=== PATIENT | female | born 1935 | race Caucasian/White ===

== ENCOUNTER 2023-12-20 10:53 | Inpatient (IN) ==
--- OUTSIDE RECORDS SUMMARY | 2023-12-20 11:13 | External Medical Summary ---
Author Name Unknown Address Unknown Organization K01:LABORATORY [facility] [place] - [facility] [place] [facility] [address] Laboratory Report Ordering Provider Test Date Status REZA FERRARA 07/16/2023 12:52:01 Final Observation Date Value Abnormality Reference (Units ) Status WBC, Total 07/16/2023 12:52:01 9.00 4.00-10.80 (K/uL) Final RBC 07/16/2023 12:52:01 4.75 3.85-5.15 (M/uL) Final Hemoglobin 07/16/2023 12:52:01 15.1 12.0-15.3 (g/dL) Final HCT 07/16/2023 12:52:01 45.8 Above high normal 36.0-45.2 (%) Final MCV 07/16/2023 12:52:01 96.4 81.5-97.5 (fL) Final MCH 07/16/2023 12:52:01 31.8 27.0-34.0 (pg) Final MCHC 07/16/2023 12:52:01 33.0 32.0-36.0 (g/dL) Final RDW 07/16/2023 12:52:01 12.7 11.5-15.5 (%) Final Platelets 07/16/2023 12:52:01 264 140-400 (K/uL) Final MPV 07/16/2023 12:52:01 10.7 6.6-11.1 (fL) Final Nucleated erythrocytes/100 leukocytes [Ratio] in Blood by Automated count 07/16/2023 12:52:01 0 <=0 (/100 WBCs) Final Performing Location LABORATORY [facility] [place] - [address] [place] [address]
--- OUTSIDE RECORDS SUMMARY | 2023-12-20 11:13 | External Medical Summary | Summary of Care ---
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 Name Role Phone Casie Slaughter MD Primary Care Provider [phone] Reason for Visit * Reason Comments NEW PATIENT R Hip Pain Encounter Details Date Type Department Care Team (Latest Contact Info) Description 08/21/2023 11:00 AM EDT Office Visit Orthopaedics [address] [phone] Gwyn Martinez MD [address] [place] [address] Primary osteoarthritis of right hip* Allergies Active Allergy Reactions Criticality Noted Date Comments Amlodipine-Atorvastatin 08/21/2023 Atorvastatin 08/21/2023 Lisinopril 02/17/2004 cough documented as of this encounter (statuses as of 08/21/2023) Medications Medication Sig Dispensed Refills Start Date End Date Status LEVOTHYROXINE SODIUM 125 MCG OR TABSIndications:Other specified acquired hypothyroidism 1 TABLET DAILY 30 3 10/03/2005 Active LOVASTATIN 10 MG PO TABSIndications:Dyslip idemia, goal LDL below 160 one tab by mouth daily at hs 30 5 10/17/2005 Active Additional Information Patient not taking.Reported on 08/21/2023 TYLENOL ARTHRITIS PAIN 650 MG PO TBCR 1/2 -1 pill prn 0 07/31/2006 Activ e PLAVIX 75 MG PO TABS one a day Acti ve ASPIRIN 81 MG PO TBEC 1 TABLET DAILY Active ADVAIR DISKUS 250-50 MCG/DOSE IN MISC bid Active COMBIVENT 103-18 MCG/ACT IN AERO 2 puffs qid Active TOPROL XL 25 MG PO TB24 one at night Active COZAAR 100 MG PO TABS one a day Act hardeep Metoprolol Tartrate 25 MG Oral Tablet (Lopressor) Take 1 Tablet by mouth in the morning and 1 Tablet before bedtime. Active amLODIPine Besylate 5 MG Oral Tablet (Norvasc) Take 1 Tablet by mouth in the morning. Active Atorvastatin Calcium 10 MG Oral Tablet (Lipitor) Take 1 Tablet by mouth in the morning. Active Hospital, Clinic, or Other Facility Administered Medication Ordered Dose Route Frequency Start Date End Date Status lidocaine 1 % inj 100 mgIndications:Primary osteoarthritis of right hip 100 mg IX ONCE 08/21/2023 08/21/19 24 Ended Triamcinolone Acetonide (Kenalog) 40 MG/ML inj 40 mgIndications:Primary osteoarthritis of right hip 40 mg IX ONCE 08/21/2023 08/21/19 24 Ended documented as of this encounter (statuses as of 08/21/2023) Active Problems Problem Noted Date Diagnosed Date ADVANCE DIRECTIVE INFORMATION 07/31/2006 Overview: Yes, Patient instructed to provide copy of advance directive for provider to review and to be scanned into Electronic Medical Record Hypertensive kidney disease, benign, stage 5 or ESRD 10/02/2005 Hypopotassemia 08/07/2005 Carotid stenosis, non-symptomatic 08/07/2005 PURE HYPERCHOLESTEROLEM 05/08/2005 LOC PRIM OSTEOART-SHLDER 05/08/2005 Other allergic rhinitis 03/05/2004 Overview: ICD-10 update of inactive term CERVICAL DISC DEGEN 07/05/2002 Carpal tunnel syndrome 05/06/2002 BENIGN PARXYSMAL VERTIGO 10/20/2000 Esophageal reflux 10/20/2000 BENIGN HYPERTENSION PLANTAR FIBROMATOSIS ACQUIRED HYPOTHYROID NEC Asthma with severity to be determined Overview: ICD-10 update of inactive term Diaphragmatic hernia Other chest pain Uterine leiomyoma GENERAL OSTEOARTHROSIS Tension headache LUMB-LUMBOSAC DISC DEGEN Sciatica COLLES' FRACTURE-CLOSED Carotid Stenosis, non-symptomatic documented as of this encounter (statuses as of 08/21/2023) Immunizations Name Administration Dates Next Due Influenza, Whole Virus 02/11/2000 1 Pneumococcal Polysaccharide PPV23 (Pneumovax) 04/25/2020 Season Influenza, Quad, PF, Adjuvanted, 65+ Yrs, IM (FLUAD) 04/25/2020 Seasonal Influenza, Split, I IV3, With Preserve, Inj 01/02/2005,03/20/2004,01/04/2003,11/0 08/2001,02/16/2001 TD - Tetanus/Diptheria (ADULT) 12/20/2004 documented as of this encounter Social History Tobacco Use Types Packs/Day Years Used Date Smoking Tobacco: Never Alcohol Use Standard Drinks/Week Comments No 0 (1 standard drink = 0.6 oz pur e alcohol) Sex and Gender Information Value Date Recorded Sex Assigned at Not on file Gender Identity Not on file Sexual Orientation Not on file Job Start Date Occupation Industry Not on file Not on file Not on file documented as of this encounter Progress Notes * Gwyn Martinez MD - 08/21/2023 11:12 AM EDT Dorys Corrales [id number] Dorys Corrales is a 88 year old female who presents for consultation for righthip injury/pain to [facility]. Consult requested by Casie Slaughter MD. Dorys Corrales is here unaccompanied Quality: reviewed and agree with Nursing Notes for HPI elements History: History - NEW Pt R Hip Xray 07/24/23 Pt's daughter works as a PAR at [employer] Pt c/o 06/24 pain today Pt does NOT wish to have sx ROS: ROS per HPI otherwise non-contributory Past Medical History: Diagnosis Date Asthma, severity to be determined Benign paroxysmal vertigo Carotid Stenosis, non-symptomatic Closed Colles' fracture 05/16/93 right arm Degeneration of lumbosacral intervertebral disc Diaphragmatic hernia Esophageal reflux Generalized osteoarthritis Hearing loss, sensorineural 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 HTN, goal below 140/90 Other chest pain negative stress test 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 Sciatica ,, RLE Tension headache Uterine leiomyoma Family History Problem Relation Name Age of Onset Other (AAA) Other no family hx of AAA Social History Socioeconomic History Marital status: Spouse name: Not on file Number of children: Not on file Years of education: Not on file Highest education level: Not on file Occupational History 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 Tobacco Use Smoking status: Never Smokeless tobacco: Not on file Substance and Sexual Activity Alcohol use: No Drug use: No Sexual activity: Not Currently Other Topics Concern Not on file Social History Narrative Lives alone Social Determinants of Health Financial Resource Strain: Not on file Food Insecurity: Not on file Transportation Needs: Not on file Physical Activity: Not on file Stress: Not on file Social Connections: Not on file Intimate Partner Violence: Not on file Housing Stability: Not on file Physical Exam Constitutional: Generally well-nourished and in no acute distress Psychiatric: Mood and Affect normal Eyes: EOMI Respiratory: Normal respiratory effort with regular rate and rhythm Cardiovascular: No edema in the affected extremity (s) Hip and Pelvis Exam Gait: Limp: Positive Antalgic: Positive Palpation: tender anterior hip joint no significant tenderness at the greater trochanter or in the lumbar spine ROM: Flexion (normal 120-130): R - 90 Internal at 90 (normal 45): R - 0 External at 90 (normal 50): R - 15 All motions created pain especially flexion and internal rotation Strength: Able to do straight leg raise Radiology: 07/24/2023: Three-view x-ray right hip including AP pelvis FINDINGS No acute fracture, dislocation, or diastasis. No focal soft tissue swelling. Moderate to severe right and [id number] left hip osteoarthritis. Mild to moderate bilateral SI joint degenerative changes. IMPRESSION IMPRESSION 1. No acute RT hip osseous finding. Assessment and Plan: 1) chronic right hip pain Strongly suspect secondary to DJD which is severe Patient does not desire surgical intervention or evaluation Also discussed physical therapy which she does not desire at this time Intra-articular steroid injection performed today 08/21/2023. Patient was reporting some improvement in her pain as she walked out of the office NOTE: Pt's daughter works as a PAR at [employer], patient's daughter will let me know in 3-4 weeks how she is doing Procedure note (hip injection), right : Time out: Prior to injection, a time out was called to confirm the administration of appropriate medicine, patient name, procedure and confirm to the best of our ability and knowledge the presence of any necessary risks and benefits. Patient verbalizes understanding. Ultrasound utilized to guide injection Ultrasound required due to: need to visualize specific joint recess Sterile techinique applied. Skin sterilized with alcohol swab. Hip injected using 3.5 inch, 22 gauge needle. Injected with 2 ml lidocaine 1%, triamcinolone acetonide 40mg/ml 1 ml. Patient tolerated procedure with no significant bleeding or adverse reaction. Patient instructed to call or return to clinic for fever or warmth and redness at injection site for potential infection. Patient also advised as to potential for steroid flare reaction including increased pain and redness at injection site which should be treated with ice and resolve within 24 hours. Gwyn Martinez MD Primary Care Sports Medicine Orthopaedics [address] [phone] documented in this encounter Nursing Notes * Teodora Segura LPN - 08/21/2023 11:07 AM EDT NEW Pt R Hip Xray 07/24/23 Pt's daughter works as a PAR at [employer] Pt c/o 06/24 pain today Pt does NOT wish to have sx Laura Prieto LPN documented in this encounter Plan of Treatment Scheduled Orders Name Type Priority Associated Diagnoses Orde r Schedule POINT OF CARE US MAJOR JOINT INJECTION, ORTHO Medical Imaging Routine Primary osteoarthritis of right hip Ordered: 08/21/2023 Health Maintenance Due Date Last Done Comments Depression Screening 1947 Zoster Vaccines (1 of 2) 1986 DTaP,Tdap,and Td Vaccines (1 - Tdap) 12/21/2004 12/20/2004 Pneumococcal Vaccine: 65+ Years (2 of 2 - PCV) 04/25/2021 04/25/2020 COVID-19 Vaccine (1 - 2022- season) 2022 *SPIROMETRY ONCE FOR ASTHMA-ADULT 08/09/2023 Influenza Vaccine (FLU shot) (Season Ended) 2023 04/25/2020, 01/02/2005, 03/20/2004, Additional history exists TSH 02/12/2024 02/11/2023, 12/16, 09/15/2018, Additional history exists DXA Scan 09/13/2027 09/12/2020, 02/15, 09/03/2002 GARDASIL-HPV IMMUNIZATION SERIES Aged Out No longer eligible based on patient's age to complete this topic Hepatitis B Aged Out No longer eligi ble based on patient's age to complete this topic MENINGOCOCCAL (MENACTRA/MENVEO) Aged Out No longer eligible based on patient's age to complete this topic documented as of this encounter Medical Devices Not on filedocumented as of this encounter Visit Diagnoses Diagnosis Primary osteoarthritis of right hip- Primary Primary localized osteoarthrosis, pelvic region and thigh documented in this encounter Administered Medications Inactive Administered Medications - up to 3 most recent administrations Medication Order MAR Action Action Date Dose Rate Site lidocaine 1 % inj 100 mg 100 mg (10 mL), Intra-Articular, ONCE, On Nadira 08/21/23 at 1245, For 1 dose Given 08/21/2023 12:38 PM EDT 100 mg Hip Right Triamcinolone Acetonide (Kenalog) 40 MG/ML inj 40 mg 40 mg, Intra-Articular, ONCE, On Nadira 08/21/23 at 1245, For 1 dose Given 08/21/2023 12:38 PM EDT 40 mg Hip Right documented in this encounter Advance Directives Documents on File Type Date Recorded 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
--- OUTSIDE RECORDS SUMMARY | 2023-12-20 11:13 | External Medical Summary | Summary of Care ---
Author Name Unknown Organization [facility] Address [address] [facility] [place] [address] Phone [phone] Care Team Providers Care Experimental Assembler Name Role Phone Casie Slaughter MD Primary Care Provider [phone] Reason for Visit * Reason Comments Outpatient Testing Encounter Details Date Type Department Care Team (Late st Contact Info) Description 07/16/2023 12:50 PM EDT Laboratory Laboratory [address] [place] [phone] [facility] [address] [place] [address] Alzheimer's disease (HCC); DM type 2, not at goal ([facility]); Coronary atherosclerosis; Uremic pericarditis Allergies Active Allergy Reactions Criticality Noted Date Comments Lisinopril 02/17/2004 cough documented as of this encounter (statuses as of 07/16/2023) Medications Medication Sig Dispensed Refills Start Date End Date Status LEVOTHYROXINE SODIUM 125 MCG OR TABSIndications:Other specified acquired hypothyroidism 1 TABLET DAILY 30 3 10/03/2005 Active LOVASTATIN 10 MG PO TABSIndications:Dyslipid emia, goal LDL below 160 one tab by mouth daily at hs 30 5 10/17/2005 Active TYLENOL ARTHRITIS PAIN 650 MG PO TBCR 1/2 -1 pill prn 0 07/31/2006 Activ e PLAVIX 75 MG PO TABS one a day 0 Acti ve ASPIRIN 81 MG PO TBEC 1 TABLET DAILY 0 Active ADVAIR DISKUS 250-50 MCG/DOSE IN MISC bid 0 Active COMBIVENT 103-18 MCG/ACT IN AERO 2 puffs qid 0 Active TOPROL XL 25 MG PO TB24 one at night 0 Active COZAAR 100 MG PO TABS one a day 0 Act hardeep documented as of this encounter (statuses as of 07/16/2023) Active Problems Problem Noted Date Diagnosed Date [...] as of this encounter (statuses as of 07/16/2023) Immunizations Name Administration Dates Next Due Pneumococcal Polysaccharide PPV23 (Pneumovax) Season Influenza, Quad, PF, Adjuvanted, 65+ Yrs, IM (FLUAD) 04/25/2020 documented as of this encounter Social History [...] on file documented as of this encounter Plan of Treatment Pending Results Name Type Priority Associated Diagnoses Date /Time COMPREHENSIVE METABOLIC PANEL Lab Routine Alzheimer's disease (HCC) DM type 2, not at goal (HCC) Coronary atherosclerosis Uremic pericarditis 07/16/2023 12:52 PM EDT CBC Lab Routine Alzheimer's disease (HCC) DM type 2, not at goal (HCC) Coronary atherosclerosis Uremic pericarditis 07/16/2023 12:52 PM EDT HEMOGLOBIN A1C Lab Routine Alzheimer's disease (HCC) DM type 2, not at goal (HCC) Coronary atherosclerosis Uremic pericarditis 07/16/2023 12:52 PM EDT Health Maintenance Due Date Last Done Comments Depression Screening 1947 Zoster Vaccines (1 of 2) 1986 DTaP,Tdap,and Td Vaccines (1 - Tdap) 12/21/2004 12/20/2004 Pneumococcal Vaccine: 65+ Years (2 of 2 - PCV) 04/25/2021 04/25/2020 COVID-19 Vaccine (1 - season) 2022 Influenza Vaccine (FLU shot) (Season Ended) 2023 [...] as of this encounter Visit Diagnoses Diagnosis Alzheimer's disease (HCC) Alzheimer's disease DM type 2, not at goal (HCC) Type II or unspecified type diabetes mellitus without mention of complication, not stated as uncontrolled Coronary atherosclerosis Coronary atherosclerosis of unspecified type of vessel, nikolai or graft Uremic pericarditis Chronic kidney disease, unspecified documented in this encounter Advance Directives Documents on File Type Date Recorded 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
--- OUTSIDE RECORDS SUMMARY | 2023-12-20 11:13 | External Medical Summary ---
Author Name Unknown Address Unknown Organization K01:LABORATORY [facility] [place] - [address] [place] [address] Laboratory Report Ordering Provider Test Date Status REZA FERRARA 07/16/2023 12:52:01 Final Observation Date Value Abnormality Reference (Units ) Status BUN 07/16/2023 12:52:01 15 6-20 (mg/dL) Final Creatinine 07/16/2023 12:52:01 1.0 0.5-1.0 (mg/dL) Final Glomerular filtration rate/1.73 sq M.predicted [Volume Rate/Area] in Serum, Plasma or Blood by Creatinine-based formula (CKD-EPI) 07/16/2023 12:52:01 54 Below low normal >=60 (mL/min) Final eGFR is calculated based on the CKD-EPI 2020 equation Sodium 07/16/2023 12:52:01 140 135-146 (m mol/L) Final Potassium 07/16/2023 12:52:01 4.3 3.5-5.1 (m mol/L) Final Cl 07/16/2023 12:52:01 102 98-107 (mm ol/L) Final CO2 07/16/2023 12:52:01 28 22-32 (mmo l/L) Final Anion gap 07/16/2023 12:52:01 10 7-15 (mmol /L) Final Glucose 07/16/2023 12:52:01 137 Above high normal 70 -120 (mg/dL) Final Albumin 07/16/2023 12:52:01 4.1 3.8-5.0 (g /dL) Final AST (Aspartate aminotransferase) 07/16/2023 12:52:01 19 10-35 (U/L) Fin al Alk Phos 07/16/2023 12:52:01 56 35-130 (U/ L) Final Bilirubin, Total 07/16/2023 12:52:01 0.6 <=1 .2 (mg/dL) Final Calcium 07/16/2023 12:52:01 10.3 Above high normal 8. 4-10.2 (mg/dL) Final Protein 07/16/2023 12:52:01 6.8 6.0-8.3 (g /dL) Final ALT (Alanine aminotransferase) 07/16/2023 12:52:01 21 10-35 (U/L) Derrick ibrahim Performing Location LABORATORY [facility] [place] - [address] [facility] [address]
--- OUTSIDE RECORDS SUMMARY | 2023-12-20 11:13 | External Medical Summary ---
Author Name Unknown Address Unknown Organization K01:[place] [facility] [place] [address] [place] [address] Laboratory Report Ordering Provider Test Date Status REZA FERRARA 11/11/2023 10:54:28 Final Deficient: <20 ng/mL
Ins ufficient: 20-29 ng/mL
Recommended/Optimum:30-50 ng/mL

Vitamin D intoxication is rare. If suspicious of Vitamin D toxicity, evaluation of serum Calcium and PTH is recommended. Observation Date Value Abnormality Reference (Units ) Status 25-OH Vitamin D total 11/11/2023 10:54:28 75 >19 (ng/mL) Final Performing Location [facility] [facility] [place] [address] [place] [address]
--- OUTSIDE RECORDS SUMMARY | 2023-12-20 11:13 | External Medical Summary ---
Author Name Unknown Address Unknown Organization K01:LABORATORY [facility] [place] - [facility] [address] Laboratory Report Ordering Provider Test Date Status JOSIASREZA 07/16/2023 12:52:01 Final Observation Date Value Abnormality Reference (Units ) Status HbA1C 07/16/2023 12:52:01 6.3 Above high normal 4. 0-5.6 (%) Final The use of HbA1c to monitor glycemic status is based on normal hemoglobin and HbA composition. This test should not be used in patients with abnormal hemoglobin that affects the half life of the red blood cell or the in vivo glycation rates. Glucose, estimated average 07/16/2023 12:52:01 134 Above high normal <126 (mg/dL) Derrick ibrahim Performing Location LABORATORY [facility] [place] - [address] [facility] [address]
--- OUTSIDE RECORDS SUMMARY | 2023-12-20 11:13 | External Medical Summary ---
Author Name Unknown Address Unknown Organization K01:LABORATORY [facility] [place] - [address] [facility] [place] [address] Laboratory Report Ordering Provider Test Date Status REZA FERRARA 11/11/2023 10:54:28 Final Observation Date Value Abnormality Reference (Units ) Status BUN 11/11/2023 10:54:28 17 6-20 (mg/dL) Final Creatinine 11/11/2023 10:54:28 1.1 Above high normal 0.5-1.0 (mg/dL) Final Glomerular filtration rate/1.73 sq M.predicted [Volume Rate/Area] in Serum, Plasma or Blood by Creatinine-based formula (CKD-EPI) 11/11/2023 10:54:28 51 Below low normal >=60 (mL/min) Final eGFR is calculated based on the CKD-EPI 2020 equation. Sodium 11/11/2023 10:54:28 137 135-146 (m mol/L) Final Potassium 11/11/2023 10:54:28 3.8 3.5-5.1 (m mol/L) Final Cl 11/11/2023 10:54:28 100 98-107 (mm ol/L) Final CO2 11/11/2023 10:54:28 26 22-32 (mmo l/L) Final Anion gap 11/11/2023 10:54:28 11 7-15 (mmol /L) Final Glucose 11/11/2023 10:54:28 118 70-120 (mg /dL) Final Albumin 11/11/2023 10:54:28 4.2 3.8-5.0 (g /dL) Final AST (Aspartate aminotransferase) 11/11/2023 10:54:28 21 10-35 (U/L) Final Alk Phos 11/11/2023 10:54:28 61 35-130 (U/ L) Final Bilirubin, Total 11/11/2023 10:54:28 0.8 <=1 .2 (mg/dL) Final Calcium 11/11/2023 10:54:28 10.1 8.4-10.2 ( mg/dL) Final Protein 11/11/2023 10:54:28 6.4 6.0-8.3 (g /dL) Final ALT (Alanine aminotransferase) 11/11/2023 10:54:28 18 10-35 (U/L) Final Performing Location LABORATORY [facility] [place] - [facility] [place] [address] [facility] [address]
--- OUTSIDE RECORDS SUMMARY | 2023-12-20 11:13 | External Medical Summary | Summary of Care ---
Author Name Unknown Organization [facility] Address [address] [facility] [place] [address] Phone [phone] Care Team Providers Care City Editor Name Role Phone Casie Slaughter MD Primary Care Provider [phone] Reason for Visit * Reason Comments Outpatient Testing Encounter Details Date Type Department Care Team (Late st Contact Info) Description 11/11/2023 10:40 AM EDT Laboratory Laboratory [address] [place] [phone] [facility] [address] [place] [address] HTN, goal below 140/90; DM type 2, not at goal ([facility]); Uremic pericarditis; Vitamin D deficiency; Hypothyroidism Allergies Active Allergy Reactions Criticality Noted Date Comments Amlodipine-Atorvastatin 08/21/2023 Atorvastatin 08/21/2023 Lisinopril 02/17/2004 cough documented as of this encounter (statuses as of 11/11/2023) Medications Medication Sig Dispensed Refills Start Date [...] Tablet by mouth in the morning. Active documented as of this encounter (statuses as of 11/11/2023) Active Problems Problem Noted Date Diagnosed Date [...] as of this encounter (statuses as of 11/11/2023) Immunizations Name Administration Dates Next Due Pneumococcal Polysaccharide PPV23 (Pneumovax) Season Influenza, Quad, PF, Adjuvanted, 65+ Yrs, IM (FLUAD) 04/25/2020 documented as of this encounter Social History Tobacco Use Types Packs/Day Years Used Date Smoking Tobacco: Never Alcohol Use Standard Drinks/Week Comments No 0 (1 standard drink = 0.6 oz pur e alcohol) Utilities Answer Date Recorded Do you have trouble paying y our heating, water, or electric bill? (Adult - for ages 18 years and over) Not on file 09/02/2023 Is your family able to pay t he heat, water, or electric bill? (Household - for ages 0-17 years) Not on file 09/02/2023 Does your family have access to good internet? (Household - for ages 0-17 years) Not on file 09/02/2023 Social Connections Answer Date Recorded How often do you feel lonely or isolated from those around you? (Adult - for ages 18 years and over) Not on file 09/02/2023 Sex and Gender Information Value Date Recorded Sex Assigned at Not on file Gender Identity Not on file Sexual Orientation Not on file Job Start Date Occupation Industry Not on file Not on file Not on file documented as of this encounter Plan of Treatment Pending Results Name Type Priority Associated Diagnoses Date /Time COMPREHENSIVE METABOLIC PANEL Lab Routine HTN, goal below 140/90 DM type 2, not at goal (HCC) Uremic pericarditis Vitamin D deficiency Hypothyroidism 11/11/2023 10:54 AM EDT CBC Lab Routine HTN, goal below 140/90 DM type 2, not at goal (HCC) Uremic pericarditis Vitamin D deficiency Hypothyroidism 11/11/2023 10:54 AM EDT 25-HYDROXY VITAMIN D Lab Routine HTN, goal below 140/90 DM type 2, not at goal (HCC) Uremic pericarditis Vitamin D deficiency Hypothyroidism 11/11/2023 10:54 AM EDT TSH Lab Routine HTN, goal below 140/90 DM type 2, not at goal (HCC) Uremic pericarditis Vitamin D deficiency Hypothyroidism 11/11/2023 10:54 AM EDT T3, FREE Lab Routine HTN, goal below 140/90 DM type 2, not at goal (HCC) Uremic pericarditis Vitamin D deficiency Hypothyroidism 11/11/2023 10:54 AM EDT T4, FREE Lab Routine HTN, goal below 140/90 DM type 2, not at goal (HCC) Uremic pericarditis Vitamin D deficiency Hypothyroidism 11/11/2023 10:54 AM EDT HEMOGLOBIN A1C Lab Routine HTN, goal below 140/90 DM type 2, not at goal (HCC) Uremic pericarditis Vitamin D deficiency Hypothyroidism 11/11/2023 10:54 AM EDT ALBUMIN / CREATININE RATIO, URINE Lab Routine HTN, goal below 140/90 DM type 2, not at goal (HCC) Uremic pericarditis Vitamin D deficiency Hypothyroidism 11/11/2023 10:54 AM EDT Health Maintenance Due Date Last Done Comments Depression Screening 1947 Zoster Vaccines (1 of 2) 1986 DTap/Tdap Vaccines (1 - Tdap) 12/21/2004 12/20/2004 Pneumococcal Vaccine: 65+ Years (2 of 2 - PCV) 04/25/2021 04/25/2020 COVID-19 Vaccine (1 - season) 2022 *SPIROMETRY ONCE FOR ASTHMA-ADULT 08/09/2023 Influenza Vaccine (FLU shot) (#1) 2023 04/25/2020, 01/02/2005, 03/20/2004, Additional history exists TSH 02/12/2024 02/11/2023, 12/16, 09/15/2018, Additional history exists DXA Scan 09/13/2027 09/12/2020, 02/15, 09/03/2002 HPV (Gardasil) Vaccine Aged Out No lo nger eligible based on patient's age to complete this topic Hepatitis B Vaccine Aged Out No longe r eligible based on patient's age to complete this topic MENINGOCOCCAL (MENACTRA/MENVEO) Aged Out No longer eligible based on patient's age to complete this topic documented as of this encounter Medical Devices Not on filedocumented as of this encounter Visit Diagnoses Diagnosis HTN, goal below 140/90 Unspecified essential hypertension DM type 2, not at goal (HCC) Type II or unspecified type diabetes mellitus without mention of complication, not stated as uncontrolled Uremic pericarditis Chronic kidney disease, unspecified Vitamin D deficiency Unspecified vitamin D deficiency Hypothyroidism Unspecified hypothyroidism documented in this encounter Advance Directives Documents on File Type Date Recorded Patient Printing Press Operator Apprentice Expl anation Power of Spouting Installer 11/24/2003 POWER OF A TTORNEY Care Teams City Editor Relationship Specialty Start Date End Date Casie Slaughter MD [address] [place] [address] [place] [id number] PCP - General 12/31/05 documented as of this encounter
--- OUTSIDE RECORDS SUMMARY | 2023-12-20 11:13 | External Medical Summary ---
Author Name Unknown Address Unknown Organization [id number]:[facility] [place] - [facility] [address] Laboratory Report Ordering Provider Test Date Status REZA FERRARA 11/11/2023 10:54:28 Final Observation Date Value Abnormality Reference (Units ) Status WBC, Total 11/11/2023 10:54:28 10.01 4.00-10.80 (K/uL) Final RBC 11/11/2023 10:54:28 4.70 3.85-5.15 (M/uL) Final Hemoglobin 11/11/2023 10:54:28 15.0 12.0-15.3 (g/dL) Final HCT 11/11/2023 10:54:28 46.1 Above high normal 36.0-45.2 (%) Final MCV 11/11/2023 10:54:28 98.1 81.5-97.5 (fL) Final MCH 11/11/2023 10:54:28 31.9 27.0-34.0 (pg) Final MCHC 11/11/2023 10:54:28 32.5 32.0-36.0 (g/dL) Final RDW 11/11/2023 10:54:28 13.2 11.5-15.5 (%) Final Platelets 11/11/2023 10:54:28 259 140-400 (K/uL) Final MPV 11/11/2023 10:54:28 10.8 6.6-11.1 (fL) Final Nucleated erythrocytes/100 leukocytes [Ratio] in Blood by Automated count 11/11/2023 10:54:28 0 <=0 (/100 WBCs) Final Performing Location [facility] [place] - [address] [facility] [address]
--- OUTSIDE RECORDS SUMMARY | 2023-12-20 11:13 | External Medical Summary | Summary of Care ---
Author Name Unknown Organization [facility] Address [address] [facility] [place] [address] Phone [phone] Care Team Providers Care Communication Clerk Name Role Phone Casie Slaughter MD Primary Care Provider [phone] Reason for Visit * Reason Comments NEW PATIENT R Hip Pain Encounter Details Date Type Department Care Team (Latest Contact Info) Description 08/21/2023 11:00 AM EDT Office Visit Orthopaedics [address] [phone] Gwyn Martinez MD [address] [place] [address] Primary osteoarthritis of right hip* Allergies Active [...] - 08/21/2023 11:12 AM EDT Dorys Corrales [id number] Dorys Corrales is a 88 year old female who presents for consultation for righthip injury/pain to [facility]. Consult requested by Casie Slaughter MD. 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 Moderate to severe right and [id number] left hip osteoarthritis. Mild to moderate bilateral [...] Pt's daughter works as a PAR at [employer], patient's daughter will let me know in [...] Martinez MD Primary Care Sports Medicine Orthopaedics [address] [address] documented in this encounter Nursing Notes * Teodora Segura LPN - 08/21/2023 11:07 AM EDT NEW Pt R Hip Xray 07/24/23 Pt's daughter works as a PAR at [employer] Pt c/o 06/24 pain today [...] Documents on File Type Date Recorded Patient Pathology Laboratory Director Expl anation Power of Roller Skates Assembler 11/24/2003 POWER OF A TTORNEY Care Teams Communication Clerk Relationship Specialty Start Date End Date Casie Slaughter MD [address] [place] [address] [place] [id number] PCP - General 12/31/05 documented as of this encounter
--- OUTSIDE RECORDS SUMMARY | 2023-12-20 11:13 | External Medical Summary | Summary of Care ---
Author Name Unknown Organization [facility] Address [address] [place] [address] Phone [phone] Care Team Providers Care Flight Information Expediter Name Role Phone Casie Slaughter MD Primary Care Provider [phone] Encounter Details Date Type Department Care Team (Late st Contact Info) Description 07/23/2023 Orders Only Radiology [address] [place] [address] Requisition, External Radiology [address] [place] [address] Right hip pain*; Abnormality of gait Allergies Active Allergy Reactions Criticality Noted Date Comments Lisinopril 02/17/2004 cough documented as of this encounter (statuses as of 07/23/2023) Medications Medication Sig Dispensed Refills Start Date [...] as of this encounter (statuses as of 07/23/2023) Active Problems Problem Noted Date Diagnosed Date [...] as of this encounter (statuses as of 07/23/2023) Immunizations Name Administration Dates Next Due Pneumococcal [...] as of this encounter Plan of Treatment Scheduled Orders Name Type Priority Associated Diagnoses Orde r Schedule XR HIP UNILAT 2-3 VIEWS INCLUDING AP PELVIS Medical Imaging Routine Right hip pain Abnormality of gait Expected: 07/23/2023, Expires: 08/22/2024 Health Maintenance Due Date Last Done Comments Depression Screening 1947 Zoster Vaccines (1 of 2) 1986 DTaP,Tdap,and Td Vaccines (1 - Tdap) 12/21/2004 12/20/2004 Pneumococcal Vaccine: 65+ Years (2 of 2 - PCV) 04/25/2021 04/25/2020 COVID-19 Vaccine (1 - 2022-24 season) 2022 Influenza Vaccine (FLU shot) (Season [...] as of this encounter Visit Diagnoses Diagnosis Right hip pain- Primary Pain in joint, pelvic region and thigh Abnormality of gait documented in this encounter Advance Directives Documents on File Type Date Recorded Patient Buffer Automatic Expl anation Power of Spinning And Winding Supervisor 11/24/2003 POWER OF A TTORNEY Care Teams Flight Information Expediter Relationship Specialty Start Date End Date Casie Slaughter MD [address] [place] [address] [place] [id number] PCP - General 12/31/05 documented as of this encounter
--- OUTSIDE RECORDS SUMMARY | 2023-12-20 11:13 | External Medical Summary ---
Author Name Unknown Address Unknown Organization [id number]:[facility] [place] [address] [place] [address] Laboratory Report Ordering Provider Test Date Status JOSIAS,REZA 11/11/2023 10:54:28 Final Observation Date Value Abnormality Reference (Units ) Status T4, Free 11/11/2023 10:54:28 1.9 Above high normal 0. 9-1.7 (ng/dL) Final Performing Location LABORATORY [facility] - [address] [place] [address]
--- OUTSIDE RECORDS SUMMARY | 2023-12-20 11:13 | External Medical Summary ---
Author Name Unknown Address Unknown Organization [id number]:LAB[facility]ATORY [facility] [place] - [address] [place] [address] Laboratory Report Ordering Provider Test Date Status REZA FERRARA 11/11/2023 10:54:28 Final Observation Date Value Abnormality Reference (Units ) Status TSH 11/11/2023 10:54:28 1.21 0.27-4.20 (uIU/mL) Final Performing Location LAB[facility]ATORY [facility] - [address] [facility] [address]
--- NOTE | 2023-12-20 12:12 | Emergency Department Note ---
Impression & Plan Pneumonia, Confusion, Hearing loss, Acute effusion of both middle ears ED Provider Note Provider: Deshawn Murillo MD DATE OF SERVICE: 12/20/2023 CHIEF COMPLAINT: Hearing issues, diarrhea, cough, confused HISTORY OF PRESENT ILLNESS: Patient is a 88-year-old female past medical history including some dementia, hypertension, approximately 2 weeks of cough and cold symptoms. Seen by her primary doctor initially and placed on steroid course. Patient has some hearing issues at baseline but evidently over the last 4 to 5 days has had significantly worsening hearing and only hears very distantly in both ears. PCP placed on Levaquin which the patient is been taking for the past 4 days and did treat some cerumen impaction and patient has been using Debrox. Patient lives by herself but daughter has been helping significantly. Patient has been expressing hopelessness that she can hear and is been more confused according to daughter. Not as clear as normal and daughter is concerned for her safety as she has been making many hopeless statements. No falls or trauma reported. No nausea or vomiting reported but has had several days of diarrhea since before the antibiotic. Patient up last night and minimally productive cough becoming more hopeless and daughter is concerned about patient and the patient expresses frustration that she cannot hear. Evidently has been crying at times. Speech may be just slightly slurred. No other focal weakness reported. PAST MEDICAL HISTORY: As noted above MEDICATIONS: Reviewed home medication list provided by daughter SOCIAL HISTORY: Lives at home on the second floor with other family being on the first floor. PHYSICAL EXAM: GENERAL: alert and oriented in no acute distress on stretcher Very hard of hearing Head: normocephalic and atraumatic, no mastoid swelling bilaterally noted. Hearing aids initially in place. EYES: No injection, discharge or icterus. PERRL, EOMI. NECK: Trachea midline. Supple. ENT: Mucous membranes pink and moist. Pharynx without erythema or exudate. Right TM clear. Left TM partially obscured by cerumen but appears intact and less than 50% visualized. LUNGS: Airway patent. No retractions. Breath sounds clear with good air entry bilaterally. HEART: Regular rate and rhythm. No chest wall tenderness ABDOMEN: Soft and non-tender, without guarding or rebound. SKIN: Acyanotic, warm, dry, without rashes EXTREMITIES: Without swelling, tenderness or deformity NEUROLOGICAL: No focal deficits. No aphasia. No facial droop or slurred speech. Normal strength and tone in the extremities. Sensation to gross touch normal. EK 6 bpm sinus rhythm with some baseline artifact. No acute ST segment elevation or depression or PVC noted. QTc 427. CONTINUOUS CARDIAC MONITORING: was ordered and showed a heart rate of 60s-70s bpm in normal sinus rhythm Patient's laboratory studies and imaging reviewed. Differential includes Infection, dehydration, metabolic abnormality, hypo/hyperglycemia, electrolyte disturbance, anemia, hypoxia, cardiac sources, pneumonia, intracerebral event, toxicologic, neurologic, as well as other pathologies. IMPRESSION/MEDICAL DECISION MAKING: Patient with initially some cough and developed diarrhea decreased hearing and some confusion according to daughter. No dizziness or trauma. No fevers reported but has had a cough. Respiratory viral panel sent. Will obtain CT head and CT angiograms to exclude a central process causing some the hearing changes but could be infectious in relation. Has been on Levaquin. Diarrhea started before this. Denies other GI symptoms or pain. No headache reported. Patient quite hopeless and tearful given the significant change in her hearing. Does have a little bit of slurred speech so again CVA remains on differential but symptoms have been more gradual over the last several days by report. Blood work here without anemia. Leukocytosis 14.3 noted. Chest x-ray reviewed radiologist questions possibly easiness in the left base. Will obtain a chest CT will get imaging to exclude pneumonia here given her cough and respiratory complaints but not hypoxic. Electrolytes without significant abnormality normal renal function. No transaminitis. Troponin 16.9 appears stable to slightly improved from previous. Doubt cardiac etiology. Respiratory viral panel does return negative. Urinalysis here negative no signs of infection. CT head and CT angiogram of the head and neck shows no acute intracranial findings with bilateral mastoid effusions and effusions the bilateral middle ears questioning otomastoiditis with moderate sinus thickening noted as well. She does have effusion likely affecting her hearing does not appear clinically toxic Significant swelling or tenderness of the mastoids and lower suspicion for mastoiditis at this point. CT of the chest shows concerning findings for pneumonia prickly in the right base. Patient has been taking Levaquin for several days. Given the findings of pneumonia with possible mastoid findings of the does not appear toxic or meningitic, will transition to cefepime and bring into the hospital. Discussed with patient and daughter findings. Given the confusion and concerns and arrange discussed further observation here at the hospital. They were in agreement and the hospitalist was consulted. DIAGNOSIS: Pneumonia, hearing loss, ear effusions, confusion DISPOSITION: Hospitalist will evaluate Patient was agreeable with this plan. Past Med/Surg History Problem List (Updated 12/20/23 @ 14:37 by Deshawn Murillo M.D.) Pneumonia (Acute) Acute effusion of both middle ears (Acute) Hearing loss (Acute) Confusion (Acute) HLD (hyperlipidemia) HTN (hypertension) Medical History HLD (hyperlipidemia) HTN (hypertension) No pertinent family history Surgical History No pertinent past surgical history Social History Smoking Status: Never smoker Preferred Language: Mosotho Feels Safe at Home: Yes Allergies Allergies Allergy/AdvReac Type Severity Reaction Status Date / Time No Known Allergies Allergy Verified 02/15/23 17:46 Home Meds Home Medications Medication Instructions Recorded Confirmed acetaminophen 650 mg 650 mg PO BID PRN Pain 06/10/21 02/15/23 tablet,extended release aspirin 81 mg tablet,delayed 81 mg PO DAILY 06/10/21 02/15/23 release atorvastatin 10 mg tablet 10 mg PO QPM 06/10/21 02/15/23 cyanocobalamin (vitamin B-12) 1,000 mcg PO DAILY 06/10/21 02/15/23 1,000 mcg tablet (Vitamin B-12) losartan 50 mg tablet 50 mg PO BID 06/10/21 02/15/23 metoprolol succinate 50 mg 50 mg PO QAM 06/10/21 02/15/23 tablet,extended release 24 hr nitroglycerin 0.6 mg/hr 1 patch transdermal QAM 06/10/21 02/15/23 transdermal 24 hour patch Caltrate Petites 1 tab PO BID 02/15/23 02/15/23 acetaminophen 500 mg tablet 1,000 mg PO DIRECTED PRN 02/15/23 02/15/23 (Tylenol Extra Strength) PAIN/FEVER amlodipine 5 mg tablet 5 mg PO QPM 02/15/23 02/15/23 cholecalciferol (vitamin D3) 50 50 mcg PO DAILY 02/15/23 02/15/23 mcg (2,000 unit) capsule (Vitamin D3) levothyroxine 125 mcg tablet 125 mcg PO DAILYBB 02/15/23 02/15/23 Results & Data (ED) Vital Signs Vital Signs - 24 hr 12/20/23 11:04 12/20/23 12:07 12/20/23 12:17 Temperature 36.2 C L Temperature Source Temporal Artery Scan Pulse Rate 87 62 71 Pulse Rate [Right Brachial] Pulse Rhythm Regular Pulse Rhythm [Right Brachial] Pulse Strength [Right Brachial] Respiratory Rate 18 18 Respiratory Effort / Characteristics Non-Labored Spontaneous Respiratory Depth Normal Respiratory Pattern Regular Blood Pressure 161/72 H Blood Pressure [Right Arm] Blood Pressure Mean 101 Blood Pressure Mean [Right Arm] Blood Pressure Position [Right Arm] Pulse Oximetry 94 98 Oxygen Delivery Method Room Air Room Air Sepsis Recent Fever Within 48 Hours No Sepsis New/Unexplained Change in Mental Status Yes Sepsis Action Taken by Nursing No Action Required 12/20/23 12:19 Temperature Temperature Source Pulse Rate Pulse Rate [Right Brachial] 63 Pulse Rhythm Pulse Rhythm [Right Brachial] Regular Pulse Strength [Right Brachial] Normal Respiratory Rate 20 Respiratory Effort / Characteristics Non-Labored Respiratory Depth Normal Respiratory Pattern Regular Blood Pressure Blood Pressure [Right Arm] 151/72 H Blood Pressure Mean Blood Pressure Mean [Right Arm] 98 Blood Pressure Position [Right Arm] Lying Pulse Oximetry 95 Oxygen Delivery Method Room Air Sepsis Recent Fever Within 48 Hours Sepsis New/Unexplained Change in Mental Status Sepsis Action Taken by Nursing Laboratory Data 12/20/23 12:20 12/20/23 12:20 Lab Results 12/20/23 12/20/23 12/20/23 Range/Units 11:15 11:34 12:20 WBC 14.39 H (4.8-10.8) K/ul RBC 4.62 (4.20-5.40) M/uL Hgb 14.2 (12.0-16.0) g/dl Hct 42.8 (37.0-47.0) % MCV 92.6 (80.0-100.0) fL MCH 30.7 (25.0-34.0) pg MCHC 33.2 (32.0-36.0) g/dL RDW Std Deviation 42.7 (36.4-46.3) fL RDW Coeff of Karen 12.6 (11.5-14.5) % Plt Count 296 (130-400) K/uL MPV 9.5 (9.4-12.4) fL Immature Gran % (Auto) 4.2 % Neut % (Auto) 80.1 % Lymph % (Auto) 9.9 % Glasscock % (Auto) 4.8 % Eos % (Auto) 0.7 % Baso % (Auto) 0.3 % Neut # (Auto) 11.51 H (1.40-6.50) K/uL Lymph # (Auto) 1.43 (1.20-3.40) K/uL Glasscock # (Auto) 0.69 H (0.11-0.59) K/uL Eos # (Auto) 0.10 (0.00-0.50) K/uL Baso # (Auto) 0.05 (0.00-0.20) K/uL Immature Gran # (Auto) 0.61 H (0.01-0.20) K/uL PT 14.0 H (9.0-12.0) Seconds INR 1.3 H (0.9-1.1) Sodium 139 (136-145) mmol/L Potassium 3.5 (3.5-5.1) mmol/L Chloride 104 (98-107) mmol/L Carbon Dioxide 28 (21-32) mmol/L Anion Gap 7 (3-11) BUN 13 (6-23) mg/dl Creatinine 0.91 (0.6-1.2) mg/dl Est Cr Clr Drug Dosing 39.5 ml/min eGFR 61.06 BUN/Creatinine Ratio 14.3 (10-20) Glucose 98 (70-99(Fasting)) mg/dl Calcium 8.9 (8.6-10.3) mg/dl Magnesium 1.9 (1.7-2.4) mg/dl Total Bilirubin 0.8 (0.2-1.0) mg/dl AST 18 (13-39) U/L ALT 30 (7-52) U/L Alkaline Phosphatase 49 (34-104) U/L Troponin I High Sens 16.9 H (0-14) pg/ml Total Protein 6.4 (6.0-8.3) gm/dl Albumin 3.2 L (3.4-5.0) gm/dl Globulin 3.2 (2.5-4.0) gm/dl Albumin/Globulin Ratio 1.0 (0.9-2) TSH 4.020 (0.300-4.500) uIu/ml Urine Color Yellow Urine Appearance Clear (Clear) Urine pH 7.5 (4.5-7.5) Ur Specific Hardy 1.005 (1.000-1.030) Urine Protein Negative (Negative) Urine Glucose (UA) Negative (Negative) Urine Ketones Negative (Negative) Urine Blood Negative (Negative) Urine Nitrite Negative (Negative) Urine Bilirubin Negative (Negative) Urine Urobilinogen Negative (Negative) Ur Leukocyte Esterase Negative (Negative) Adenovirus (PCR) Not Detected (NotDetected) B. pertussis DNA (PCR) Not Detected (NotDetected) B.parapertussis DNA PCR Not Detected (NotDetected) C. pneumoniae DNA (PCR) Not Detected (NotDetected) Coronavirus OC43 (PCR) Not Detected (NotDetected) Coronavirus HKU1 (PCR) Not Detected (NotDetected) Coronavirus 229E (PCR) Not Detected (NotDetected) SARS-CoV-2 (PCR) Not Detected (NotDetected) Coronavirus NL63 (PCR) Not Detected (NotDetected) Human Metapneumovir PCR Not Detected (NotDetected) Influenza Type A (PCR) Not Detected (NotDetected) Influenza Type B (PCR) Not Detected (NotDetected) M. pneumoniae (PCR) Not Detected (NotDetected) Parainfluenza 1 (PCR) Not Detected (NotDetected) Parainfluenza 2 (PCR) Not Detected (NotDetected) Parainfluenza 3 (PCR) Not Detected (NotDetected) Parainfluenza 4 (PCR) Not Detected (NotDetected) RSV (PCR) Not Detected (NotDetected) Entero/Rhino (PCR) Not Detected (NotDetected) Administered Medications Discontinued Medications Ioversol (Optiray 320 125ml) 112 ml IV ONCE ONE Stop: 12/20/23 13:43 Last Admin: 12/20/23 13:42 Dose: 112 ml Documented By: EDILIA Imaging Data Radiologist's Impression: Head CTA 12/20/23 11:26 CTA ANGIOGRAPHY OF THE HEAD CLINICAL HISTORY: Hearing loss, confusion, cough COMPARISON STUDY: CTA of the head February 15, 2023. TECHNIQUE: Helical axial images of the head were obtained following uneventful intravenous administration of 112 cc of Optiray. Sagittal and coronal reconstructions were viewed as well as maximal intensity projections on an independent 3-D workstation. Automated exposure control was utilized for the study. A dose lowering technique was utilized adhering to the principles of ALARA. FINDINGS: Bilateral mastoid effusions and fluid within the middle ears have developed since prior exam. There is also moderate sphenoid sinus mucosal thickening. There is moderate plaque within the bilateral cavernous carotids, similar to prior exam. This results in moderate stenosis of the bilateral cavernous carotids. No large vessel occlusion is identified. Is no intracranial aneurysm. Left vertebral artery is dominant. There is mild stenosis of the intracranial portion of the left vertebral artery, unchanged. The bilateral posterior cerebral are patent. IMPRESSION: 1. No large vessel occlusion. No intracranial aneurysm. 2. Moderate multifocal stenoses within the intracranial vessels, similar to CTA of February 15, 2023. 3. Bilateral mastoid effusions and fluid within the middle ears. Moderate sphenoid sinus mucosal thickening. ACT 112: Negative or not required by law. Electronically signed by: Delfin Morris M.D. 12/20/2023 2:13 PM Neck CTA 12/20/23 11:26 CT ANGIOGRAPHY OF THE NECK WITH CONTRAST CLINICAL HISTORY: Hearing loss, confusion, cough COMPARISON STUDY: CTA of the neck February 15, 2023. Technique: CT angiography of the carotid and vertebral arteries was obtained using Optiray and 3D reconstruction on an independent workstation. NASCET criteria was utilized. Automated exposure control was utilized for the study. A dose lowering technique was utilized adhering to the principles of ALARA. Findings: Please note that the chest CT will be reported separately. Multifocal airspace opacities are better depicted on that exam. This exam is mildly compromised by motion artifact. There is no cervical lymphadenopathy. There are no cervical spine fractures. There is mild plaque within the carotid bifurcations without stenosis. There are no stenoses within the bilateral carotid arteries. The left vertebral artery is dominant and patent. The right vertebral artery is diminutive on a congenital basis. The appearance of the right vertebral artery is unchanged. No definite flow within the distal cervical portion of the vertebral artery, unchanged. There are bilateral mastoid effusions, left larger than right. There is fluid within the bilateral middle ears. Moderate sphenoid sinus mucosal thickening is present. IMPRESSION: 1. No stenoses within the bilateral common carotid or cervical internal carotid arteries. 2. Dominant, patent left vertebral artery. Diminutive right vertebral artery, likely on a congenital basis. This is unchanged. 3. Bilateral mastoid effusions and fluid within the middle ears. The findings may reflect otomastoiditis. Moderate sphenoid sinus mucosal thickening. ACT 112: Negative or not required by law. Electronically signed by: Delfin Morris M.D. 12/20/2023 2:06 PM Chest X-Ray 12/20/23 11:27 XR chest 1V portable CLINICAL HISTORY: cough hearing loss, confusion COMPARISON STUDY: Chest radiograph February 15, 2023. FINDINGS: Lung volumes are normal. There is no pneumothorax or pleural effusion. Hazy left basilar opacity is present. Right lung is clear. The heart is mildly enlarged. There is no evidence for pulmonary edema. IMPRESSION: Hazy left basilar opacity. Although this could be atelectatic or artifactual, pneumonia could appear similar. Follow-up PA and lateral chest radiographs are recommended. ACT 112: Negative or not required by law. Electronically signed by: Delifn Morris M.D. 12/20/2023 12:[address] 12/20/23 11:28 CT OF THE HEAD WITHOUT CONTRAST CLINICAL HISTORY: Hearing loss, confusion, cough. COMPARISON STUDY: Head CT February 15, 2023. TECHNIQUE: Helical axial images of the head were obtained without IV contrast. Automated exposure control was utilized for the study. A dose lowering technique was utilized adhering to the principles of ALARA. FINDINGS: No acute intracranial hemorrhage, midline shift or mass effect is present. The ventricular system is unremarkable. The basal cisterns are patent. No extra-axial collections are present. There are no findings to suggest acute dural sinus thrombosis or acute territorial infarct. Bilateral mastoid effusions, left larger than right, have developed. The left mastoid air cells are nearly entirely opacified. Fluid within the middle ears has also developed since prior exam. Moderate ethmoid sinus mucosal thickening is now present. There is mild ethmoid sinus mucosal thickening. IMPRESSION: 1. No acute intracranial findings. 2. Interval development of bilateral mastoid effusions and fluid within the bilateral middle ears since CT of February 15, 2023. The findings may reflect otomastoiditis. 3. Moderate sinus mucosal thickening. ACT 112: Negative or not required by law. Electronically signed by: Delfin Morris M.D. 12/20/2023 2:[address] 12/20/23 12:46 CT OF THE CHEST WITH IV CONTRAST CLINICAL HISTORY: confusion, cough, L base? COMPARISON STUDY: Chest radiograph February 15, 2023 and chest radiograph performed earlier today. TECHNIQUE: Following IV administration of 112 mL of Optiray, helical axial images of the chest were obtained. Sagittal and coronal reconstructions were viewed as well as maximal intensity projections on an independent 3-D workstation. Automated exposure control was utilized for the study. A dose lowering technique was utilized adhering to the principles of ALARA. CT DOSE: 1753. mGy.cm FINDINGS: This exam is moderately compromised by motion artifact. There is no pericardial effusion. Size of the heart is at the upper limits of normal. There is moderate coronary artery calcification. Small hiatal hernia. There is no pneumothorax. Trace right pleural effusion is present. Moderate right lower lobe airspace opacity is present. Patchy additional airspace opacities throughout the lungs are present. These include a 1.5 cm left upper lobe airspace opacity. Visualized portions of the upper abdomen are unremarkable. There is no cavitation. No central obstructing mass is identified. IMPRESSION: 1. Moderate multifocal airspace opacities, greatest within the right lower lobe. The findings favor pneumonia or aspiration pneumonitis. A follow-up chest CT in 3 months to ensure resolution is recommended. 2. Trace right pleural effusion. 3. Exam moderately compromised by motion artifact. 4. Small hiatal hernia. ACT 112: Negative or not required by law. Electronically signed by: Delfin Morris M.D. 12/20/2023 2:17 PM Discharge Plan Visit Data Chief Complaint: Infection Stated Complaint: MENTAL STATUS CHANGES DUE TO INFECTION ED Provider: Deshawn Murillo Discharge Problem: Pneumonia, Confusion, Hearing loss, Acute effusion of both middle ears Patient Disposition: Being Evaluated by Hospitalist Forms Stand Alone Forms: My FONU2 Prescriptions Prescriptions: No Action losartan 50 mg tablet 50 mg PO BID nitroglycerin 0.6 mg/hr patch 24 hour 1 patch transdermal QAM Rx Instructions: Put patch on in the AM Take patch off in the PM atorvastatin 10 mg tablet 10 mg PO QPM metoprolol succinate 50 mg tablet extended release 24 hr 50 mg PO QAM cyanocobalamin (vitamin B-12) [Vitamin B-12] 1,000 mcg Tablet 1,000 mcg PO DAILY aspirin 81 mg Tablet,Delayed Release (Dr/Ec) 81 mg PO DAILY acetaminophen [Tylenol Arthritis] 650 mg Tablet Extended Release 650 mg PO BID PRN (Reason: Pain) Rx Instructions: PER PT'S DAUGHTER, "TAKES EVERY MORNING, THEN IF PLANNING ON GOING OUT, WILL TAKE A SECOND TABLET". amlodipine 5 mg tablet 5 mg PO QPM levothyroxine 125 mcg tablet 125 mcg PO DAILYBB cholecalciferol (vitamin D3) [Vitamin D3] 50 mcg (2,000 unit) Capsule 50 mcg PO DAILY Caltrate Petites 1 tab PO BID Rx Instructions: STRENGTH 200-250MG acetaminophen [Tylenol Extra Strength] 500 mg Tablet 1,000 mg PO DIRECTED PRN (Reason: PAIN/FEVER) Referrals Referrals: Kenny Slaughter [Primary Care Provider] - Discharge Problem: Pneumonia Qualifiers: Pneumonia type: due to unspecified organism Laterality: unspecified laterality Lung location: lower lobe of lung Qualified Code(s): J18.9 - Pneumonia, unspecified organism
[2023-12-20 12:41] LABS: Basophils # (auto) 0.05 K/uL (0.00-0.20); Basophils % (auto) 0.3 %; Eosinophils % (auto) 0.7 %; Hematocrit (blood only) 42.8 % (37.0-47.0); Hemoglobin 14.2 g/dl (12.0-16.0); Immature Granulocytes # (auto) 0.61 K/uL (0.01-0.20); Immature Granulocytes % (auto) 4.2 %; Lymphocytes # (auto) 1.43 K/uL (1.20-3.40); Lymphocytes % (auto) 9.9 %; Mean Corpuscular Hemoglobin 30.7 pg (25.0-34.0); Mean Corpuscular Hgb Conc 33.2 g/dL (32.0-36.0); Mean Corpuscular Volume 92.6 fL (80.0-100.0); Mean Platelet Volume 9.5 fL (9.4-12.4); Monocytes # (auto) 0.69 K/uL (0.11-0.59); Monocytes % (auto) 4.8 %; Neutrophils # (auto) 11.51 K/uL (1.40-6.50); Neutrophils % (auto) 80.1 %; Platelet Count 296 K/uL (130-400); RDW Coefficient of Variation 12.6 % (11.5-14.5); RDW Standard Deviation 42.7 fL (36.4-46.3); Red Blood Count 4.62 M/uL (4.20-5.40); White Blood Count 14.39 K/ul (4.8-10.8)
--- NOTE | 2023-12-20 12:44 | XRay Report ---
XR chest 1V portable CLINICAL HISTORY: cough hearing loss, confusion COMPARISON STUDY: Chest radiograph February 15, 2023. FINDINGS: Lung volumes are normal. There is no pneumothorax or pleural effusion. Hazy left basilar op acity is present. Right lung is clear. The heart is mildly enlarged. There is no evidence for pulmona ry edema. IMPRESSION: Hazy left basilar opacity. Although this could be atelectatic or artifactual, pneumonia could appear similar. Follow-up PA and lateral chest radiographs are recommended. ACT 112: Negative or not required by law. Electronically signed by: Delfin Morris M.D. 12/20/2023 12:42 PM
[2023-12-20 12:59] LABS: Albumin Level 3.2 gm/dl (3.4-5.0); BUN Creatinine Ratio 14.3 (10-20); Bilirubin,Total 0.8 mg/dl (0.2-1.0); Calcium 8.9 mg/dl (8.6-10.3); Creatinine Clr Calc Pharmacy 39.5 ml/min; Globulin 3.2 gm/dl (2.5-4.0); Magnesium 1.9 mg/dl (1.7-2.4); Potassium 3.5 mmol/L (3.5-5.1); Total Protein 6.4 gm/dl (6.0-8.3)
[2023-12-20 13:05] LABS: Troponin I High Sensitivity 16.9 pg/ml (0-14)
[2023-12-20 13:15] LABS: Thyroid Stimulating Hormone 4.02 uIu/ml (0.300-4.500)
[2023-12-20 13:23] LABS: Adenovirus PCR Not Detected (NotDetected); Bordetella parapertussis PCR Not Detected (NotDetected); Bordetella pertussis PCR Not Detected (NotDetected); Chlamydia pneumoniae PCR Not Detected (NotDetected); Coronavirus 229E PCR Not Detected (NotDetected); Coronavirus CoV-2 (COVID19)PCR Not Detected (NotDetected); Coronavirus HKU1 PCR Not Detected (NotDetected); Coronavirus NL63 PCR Not Detected (NotDetected); Coronavirus OC43PCR Not Detected (NotDetected); Human Metapneumovirus PCR Not Detected (NotDetected); Influenza A PCR Not Detected (NotDetected); Influenza B PCR Not Detected (NotDetected); Mycoplasma pneumoniae PCR Not Detected (NotDetected); Parainfluenza Virus 1 PCR Not Detected (NotDetected); Parainfluenza Virus 2 PCR Not Detected (NotDetected); Parainfluenza Virus 3 PCR Not Detected (NotDetected); Parainfluenza Virus 4 PCR Not Detected (NotDetected); Respiratory Syncytial VirusPCR Not Detected (NotDetected); Rhinovirus/Enterovirus PCR Not Detected (NotDetected)
[2023-12-20 13:23] LABS: INR 1.3 (0.9-1.1)
[2023-12-20] MEDS: OPTIRAY 320 125ml IV ONE (13:42)
[2023-12-20 13:47] LABS: Appearance Urine Clear (Clear); Bilirubin Urine Negative (Negative); Blood Urine Negative (Negative); Color Urine Yellow; Glucose Urine UA Negative (Negative); Ketones Urine Negative (Negative); Leukocyte Esterase Urine Negative (Negative); Nitrite Urine Negative (Negative); Protein Urine Negative (Negative); Specific Gravity Urine 1.005 (1.000-1.030); Urobilinogen Urine Negative (Negative); pH Urine 7.5 (4.5-7.5)
--- NOTE | 2023-12-20 14:03 | CT Scan Report ---
CT OF THE HEAD WITHOUT CONTRAST CLINICAL HISTORY: Hearing loss, confusion, cough. COMPARISON STUDY: Head CT February 15, 2023. TECHNIQUE: Helical axial images of the head were obtained without IV contrast. Automated exposure con trol was utilized for the study. A dose lowering technique was utilized adhering to the principles o f ALARA. FINDINGS: No acute intracranial hemorrhage, midline shift or mass effect is present. The ventricular system is unremarkable. The basal cisterns are patent. No extra-axial collections are present. There are no findings to suggest acute dural sinus thrombosis or acute territorial infarct. Bilateral masto id effusions, left larger than right, have developed. The left mastoid air cells are nearly entirely opacified. Fluid within the middle ears has also developed since prior exam. Moderate ethmoid sinus m ucosal thickening is now present. There is mild ethmoid sinus mucosal thickening. IMPRESSION: 1. No acute intracranial findings. 2. Interval development of bilateral mastoid effusions and fluid within the bilateral middle ears sin ce CT of February 15, 2023. The findings may reflect otomastoiditis. 3. Moderate sinus mucosal thickening. ACT 112: Negative or not required by law. Electronically signed by: Delfin Morris M.D. 12/20/2023 2:00 PM
--- NOTE | 2023-12-20 14:08 | CT Scan Report ---
CT ANGIOGRAPHY OF THE NECK WITH CONTRAST CLINICAL HISTORY: Hearing loss, confusion, cough COMPARISON STUDY: CTA of the neck February 15, 2023. Technique: CT angiography of the carotid and vertebral arteries was obtained using Optiray and 3D rec onstruction on an independent workstation. NASCET criteria was utilized. Automated exposure control was utilized for the study. A dose lowering technique was utilized adhering to the principles of ALA RA. Findings: Please note that the chest CT will be reported separately. Multifocal airspace opacities ar e better depicted on that exam. This exam is mildly compromised by motion artifact. There is no cervi wild lymphadenopathy. There are no cervical spine fractures. There is mild plaque within the carotid b ifurcations without stenosis. There are no stenoses within the bilateral carotid arteries. The left v ertebral artery is dominant and patent. The right vertebral artery is diminutive on a congenital basi s. The appearance of the right vertebral artery is unchanged. No definite flow within the distal cerv ical portion of the vertebral artery, unchanged. There are bilateral mastoid effusions, left larger t grijalva right. There is fluid within the bilateral middle ears. Moderate sphenoid sinus mucosal thickenin g is present. IMPRESSION: 1. No stenoses within the bilateral common carotid or cervical internal carotid arteries. 2. Dominant, patent left vertebral artery. Diminutive right vertebral artery, likely on a congenital basis. This is unchanged. 3. Bilateral mastoid effusions and fluid within the middle ears. The findings may reflect otomastoidi tis. Moderate sphenoid sinus mucosal thickening. ACT 112: Negative or not required by law. Electronically signed by: Delfin Morris M.D. 12/20/2023 2:06 PM
--- NOTE | 2023-12-20 14:15 | CT Scan Report ---
CTA ANGIOGRAPHY OF THE HEAD CLINICAL HISTORY: Hearing loss, confusion, cough COMPARISON STUDY: CTA of the head February 15, 2023. TECHNIQUE: Helical axial images of the head were obtained following uneventful intravenous administr ation of 112 cc of Optiray. Sagittal and coronal reconstructions were viewed as well as maximal inten sity projections on an independent 3-D workstation. Automated exposure control was utilized for the study. A dose lowering technique was utilized adhering to the principles of ALARA. FINDINGS: Bilateral mastoid effusions and fluid within the middle ears have developed since prior exa m. There is also moderate sphenoid sinus mucosal thickening. There is moderate plaque within the bila teral cavernous carotids, similar to prior exam. This results in moderate stenosis of the bilateral c avernous carotids. No large vessel occlusion is identified. Is no intracranial aneurysm. Left vertebr al artery is dominant. There is mild stenosis of the intracranial portion of the left vertebral arter y, unchanged. The bilateral posterior cerebral are patent. IMPRESSION: 1. No large vessel occlusion. No intracranial aneurysm. 2. Moderate multifocal stenoses within the intracranial vessels, similar to CTA of February 15, 2023. 3. Bilateral mastoid effusions and fluid within the middle ears. Moderate sphenoid sinus mucosal thic kening. ACT 112: Negative or not required by law. Electronically signed by: Delfin Morris M.D. 12/20/2023 2:13 PM
--- NOTE | 2023-12-20 14:19 | CT Scan Report ---
CT OF THE CHEST WITH IV CONTRAST CLINICAL HISTORY: confusion, cough, L base? COMPARISON STUDY: Chest radiograph February 15, 2023 and chest radiograph performed earlier today. TECHNIQUE: Following IV administration of 112 mL of Optiray, helical axial images of the chest were obtained. Sagittal and coronal reconstructions were viewed as well as maximal intensity projections on an independent 3-D workstation. Automated exposure control was utilized for the study. A dose lo wering technique was utilized adhering to the principles of ALARA. CT DOSE: 1753. mGy.cm FINDINGS: This exam is moderately compromised by motion artifact. There is no pericardial effusion. Size of the heart is at the upper limits of normal. There is moderate coronary artery calcification. Small hiatal hernia. There is no pneumothorax. Trace right pleural effusion is present. Moderate righ t lower lobe airspace opacity is present. Patchy additional airspace opacities throughout the lungs a re present. These include a 1.5 cm left upper lobe airspace opacity. Visualized portions of the upper abdomen are unremarkable. There is no cavitation. No central obstructing mass is identified. IMPRESSION: 1. Moderate multifocal airspace opacities, greatest within the right lower lobe. The findings favor p neumonia or aspiration pneumonitis. A follow-up chest CT in 3 months to ensure resolution is recommen ded. 2. Trace right pleural effusion. 3. Exam moderately compromised by motion artifact. 4. Small hiatal hernia. ACT 112: Negative or not required by law. Electronically signed by: Delfin Morris M.D. 12/20/2023 2:17 PM
[2023-12-20] MEDS: CEFEPIME 2 GM VIAL IV ONE (14:52)
[2023-12-20] MEDS: CEFEPIME 2000MG 2,000 MG/20 ML SYR IV STA (15:00)
--- NOTE | 2023-12-20 15:52 | History & Physical Report ---
Date of Service December 20, 2023 Assessment & Plan (1) Pneumonia: (2) Acute effusion of both middle ears: (3) Hearing loss: (4) Confusion: (5) HTN (hypertension): Plan: 88-year-old female with history of hypertension, CKD stage III, dyslipidemia, hypothyroidism, asthma, carotid stenosis, GERD, presenting with cough and shortness of breath x 10 days. Bilateral pneumonia presents with productive cough, weakness Has completed course of tapering prednisone, has been on Levaquin p.o. for at least 3 days as prescribed by PCP BioFire negative Check sputum culture, blood culture, nasal MRSA swab Start cefepime 2 g IV every 12 hours-renally dose Xopenex every 6 hours, hypertonic saline twice daily Incentive spirometry, flutter valve, Mucinex, probiotics Gentle IV fluids Bilateral mastoiditis Ethmoid Sinusitis Associated with significant hearing loss As per daughter, patient's hearing has been fine with hearing aids until this illness On cefepime for pneumonia as per above Will consult ENT for further recommendations Diarrhea Check for stool panel and C. difficile Clear liquid diet for now Confusion, possible toxic metabolic encephalopathy Likely multifactorial from underlying dementia, recent prednisone taper, recent Levaquin use, underlying infection CT head no acute CVA noted Urinalysis no UTI Patient answers my questions appropriately Patient's daughter status confused seems to be improving Continue to monitor closely Delirium prevention strategies Hypertension Blood pressure elevated likely secondary to stress Continue usual amlodipine, metoprolol, losartan As needed hydralazine CKD stage III Stable Hypothyroidism TSH normal Continue usual levothyroxine History of asthma Not in exacerbation On as needed albuterol at home DVT prophylaxis Heparin subcu CODE STATUS As per daughter, patient has advanced directives which indicates DNR Disposition Lives with family PT and OT evaluation History of Present Illness Chief Complaint: Cough, shortness of breath x 10 days Primary Care Provider: Kenny Slaughter 88-year-old female with history of hypertension, CKD stage III, dyslipidemia, hypothyroidism, asthma, carotid stenosis, GERD, presenting with cough and shortness of breath x 10 days. Patient's history mostly obtained from daughter Gisela at the bedside as patient is very hard of hearing. According to her, patient has dementia at baseline, with some sundowning noted recently. 10 days ago, patient started to have productive cough, was seen by PCP and was prescribed with prednisone taper, albuterol inhaler as needed and guaifenesin. Symptoms minimally improved, and patient then complained of significant hearing loss, which caused her severe frustration. No fevers or chills, ear pain, ear discharge. Her daughter notes that at 1 point, she noticed thick discharge from patient's eyes and some swelling in the maxillary region. Patient was then brought to the PCP office again last Friday and was given Levaquin p.o. for possible pneumonia. As per daughter, patient's symptoms have not improved since that time. She was noted to be more confused and having diarrhea 2-3 episodes, nonbloody for the past 2 days. At the ER, patient received with elevated blood pressure for, but other vital signs were stable. CT head showed bilateral mastoid effusion, and fluid within bilateral middle ears, moderate sinus mucosal thickening CT chest showing moderate multifocal areas opacities, greatest within the right lower lobe Patient started IV cefepime at the ER. On exam, patient seen sitting up in bed, comfortable, not in distress, on room air, smiling. She states she feels okay overall, has intermittent cough, unable to expectorate sputum. Denies headache, dizziness, ear pain, chest pain, abdominal pain, nausea vomiting. Allergies Allergy/AdvReac Type Severity Reaction Status Date / Time lisinopril AdvReac Severe Cough Unverified 12/20/23 14:56 Home Medications Medication Instructions Recorded Confirmed Type acetaminophen 650 mg 650 mg PO BID PRN Pain 06/10/21 12/20/23 History tablet,extended release aspirin 81 mg tablet,delayed 81 mg PO DAILY 06/10/21 12/20/23 History release atorvastatin 10 mg tablet 10 mg PO QPM 06/10/21 12/20/23 History cyanocobalamin (vitamin B-12) 1,000 mcg PO DAILY 06/10/21 12/20/23 History 1,000 mcg tablet (Vitamin B-12) losartan 50 mg tablet 50 mg PO QAM 06/10/21 12/20/23 History nitroglycerin 0.6 mg/hr 1 patch transdermal QAM 06/10/21 12/20/23 History transdermal 24 hour patch acetaminophen 500 mg tablet 1,000 mg PO DIRECTED PRN 02/15/23 12/20/23 History (Tylenol Extra Strength) PAIN/FEVER amlodipine 5 mg tablet 5 mg PO QPM 02/15/23 12/20/23 History cholecalciferol (vitamin D3) 50 50 mcg PO DAILY 02/15/23 12/20/23 History mcg (2,000 unit) capsule (Vitamin D3) levothyroxine 125 mcg tablet 125 mcg PO DAILYBB 02/15/23 12/20/23 History albuterol sulfate 90 mcg/actuation 2 puff inhalation QID PRN Coughing 12/20/23 12/20/23 History aerosol inhaler benzonatate 100 mg capsule 100 mg PO QID PRN Cough 12/20/23 12/20/23 History calcium ER 600 mg (as carb,cit)-D3 1 tab PO DAILY 12/20/23 12/20/23 History 12.5 mcg (500 unit) tablet, ext.rel (Citracal-D3 Slow Release) gabapentin 100 mg capsule 100 mg PO UD 12/20/23 12/20/23 History levofloxacin 500 mg tablet 500 mg PO DAILY 12/20/23 12/20/23 History magnesium oxide 250 mg PO QPM 12/20/23 12/20/23 History metoprolol succinate 25 mg 25 mg PO QAM 12/20/23 12/20/23 History tablet,extended release 24 hr Past Med/Surg History Problem List (Updated 12/20/23 @ 17:44 by Antoine العراقي) Pneumonia (Acute) Acute effusion of both middle ears (Acute) Hearing loss (Acute) Confusion (Acute) HLD (hyperlipidemia) HTN (hypertension) Medical History HLD (hyperlipidemia) HTN (hypertension) No pertinent family history Surgical History No pertinent past surgical history Social History Smoking Status: Never smoker Preferred Language: [place] Citizen Feels Safe at Home: Yes Review of Systems Review of Systems: all noted and negative except for above Physical Exam Physical Exam: General- oriented x 3, not in distress, speaks in sentences with no effort or accessory muscle use Somewhat weak Head- atraumatic Eyes- PERRL, EOMI, anicteric ENT- oropharynx clear No ear discharge, no tenderness on palpation of the mastoid area Neck- supple, no JVD, no adenopathy, no thyromegaly; carotids +2/2, no bruits appreciated Lungs- Positive mild rhonchi, scattered, bilateral No wheezing Good air entry bilaterally Heart- normal rate, regular rhythm; no murmur, no gallop, no rub appreciated Abdomen- normal bowel sounds, nondistended, soft, nontender, no masses or hepatosplenomegaly Extremities- no pretibial edema, no calf tenderness; peripheral pulses intact Neuro- alert, oriented x 3; CN 2-12 grossly intact Except for severe hearing loss; motor 5/5 bilaterally;sensation 100% on all extremities; no other gross focal neurologic deficits Skin- warm & dry Results & Data Results & Data Vital Signs (Past 12 Hours) Vital Signs Temp Pulse Pulse Resp BP BP Pulse Ox 12/20/23 15:12 67 23 95 12/20/23 15:07 65 19 161/86 H 92 12/20/23 15:00 161/86 H 12/20/23 14:54 62 15 94 12/20/23 14:30 166/75 H 12/20/23 14:27 68 24 96 12/20/23 14:07 151/112 H 12/20/23 14:07 151/112 H 12/20/23 14:06 71 19 12/20/23 14:00 73 18 161/86 H 94 12/20/23 13:57 77 25 H 12/20/23 13:30 156/70 H 12/20/23 13:30 156/70 H 12/20/23 12:30 64 24 12/20/23 12:30 147/74 H 12/20/23 12:30 147/74 H 12/20/23 12:30 147/74 H 12/20/23 12:19 151/72 H 12/20/23 12:19 63 20 151/72 H 95 12/20/23 12:18 71 19 12/20/23 12:17 71 18 98 12/20/23 12:07 62 12/20/23 12:06 61 16 12/20/23 11:04 36.2 C L 87 18 161/72 H 94 O2 Del Method 12/20/23 15:12 12/20/23 15:07 Room Air 12/20/23 15:00 12/20/23 14:54 12/20/23 14:30 12/20/23 14:27 12/20/23 14:07 12/20/23 14:07 12/20/23 14:06 12/20/23 14:00 Room Air 12/20/23 13:57 12/20/23 13:30 12/20/23 13:30 12/20/23 12:30 12/20/23 12:30 12/20/23 12:30 12/20/23 12:30 12/20/23 12:19 12/20/23 12:19 Room Air 12/20/23 12:18 12/20/23 12:17 Room Air 12/20/23 12:07 12/20/23 12:06 12/20/23 11:04 Room Air Code Status & VTE Plan VTE Prophylaxis Plan VTE Prophylaxis will be ordered: Yes (1) Pneumonia Laterality: unspecified laterality Lung location: lower lobe of lung Pneumonia type: due to unspecified organism Qualified Code(s): J18.9 - Pneumonia, unspecified organism
[2023-12-20] MEDS ORDERED: PROMETHAZINE 6.25 MG/50.25 ML BAG IV PRN (17:59)
[2023-12-20] MEDS ORDERED: hydrALAZINE HCL 20 MG/ML VIAL IV PRN (17:59)
[2023-12-20] MEDS: LEVALBUTEROL 1.25 MG/3 ML NEB NEB SCH (18:50)
[2023-12-20] MEDS: NSS + 20MEQ KCL 20 MEQ/1,000 ML BAG IV SCH (18:50)
[2023-12-20] MEDS: LORazepam 0.5 MG TAB PO STA (20:33)
[2023-12-20] MEDS: amLODIPine BESYLATE 5 MG TAB PO SCH (20:34)
[2023-12-20] MEDS: MAGNESIUM OXIDE 400 MG TAB PO SCH (20:35)
[2023-12-20] MEDS: ADVANCED PROBIOTIC 625 MG CAPSULE PO SCH (20:35)
[2023-12-20] MEDS: GABAPENTIN 100 MG CAP PO SCH (20:38)
[2023-12-20] MEDS: HEPARIN SOD 5,000 UNIT/0.5 ML VIAL SQ SCH (20:46)
[2023-12-20] MEDS: guaiFENesin 600 MG TABCR PO SCH (20:46)
[2023-12-20] MEDS: ATORVASTATIN 10 MG TAB PO SCH (20:48)
[2023-12-20] MEDS ORDERED: OLANZapine 10 MG/2.1 ML SDV IM PRN (23:20)
[2023-12-20] MEDS: OLANZapine 10 MG/2.1 ML SDV IM STA (23:36)
[2023-12-21] MEDS: CEFEPIME 2000MG 2,000 MG/20 ML SYR IV SCH (01:41)
[2023-12-21 04:53] LABS: Basophils # (auto) 0.06 K/uL (0.00-0.20); Basophils % (auto) 0.5 %; Eosinophils # (auto) 0.08 K/uL (0.00-0.50); Eosinophils % (auto) 0.6 %; Hematocrit (blood only) 40.8 % (37.0-47.0); Hemoglobin 13.3 g/dl (12.0-16.0); Immature Granulocytes # (auto) 0.37 K/uL (0.01-0.20); Immature Granulocytes % (auto) 2.8 %; Lymphocytes # (auto) 1.83 K/uL (1.20-3.40); Lymphocytes % (auto) 14.1 %; Mean Corpuscular Hemoglobin 30.4 pg (25.0-34.0); Mean Corpuscular Hgb Conc 32.6 g/dL (32.0-36.0); Mean Corpuscular Volume 93.4 fL (80.0-100.0); Mean Platelet Volume 9.8 fL (9.4-12.4); Monocytes # (auto) 0.74 K/uL (0.11-0.59); Monocytes % (auto) 5.7 %; Neutrophils # (auto) 9.92 K/uL (1.40-6.50); Neutrophils % (auto) 76.3 %; Platelet Count 256 K/uL (130-400); RDW Coefficient of Variation 12.5 % (11.5-14.5); Red Blood Count 4.37 M/uL (4.20-5.40)
[2023-12-21 05:10] LABS: BUN Creatinine Ratio 13.1 (10-20); Calcium 8.5 mg/dl (8.6-10.3); Creatinine Clr Calc Pharmacy 42.8 ml/min; Potassium 3.4 mmol/L (3.5-5.1)
[2023-12-21] MEDS: LEVOTHYROXINE SODIUM 125 MCG TABLET PO SCH (06:42)
[2023-12-21] MEDS: CYANOCOBALAMIN (B-12) 500 MCG TABLET PO SCH (09:51)
[2023-12-21] MEDS: CALCIUM 600MG + VIT D 400 IU TAB PO SCH (09:51)
[2023-12-21] MEDS: CHOLECALCIFEROL 25 MCG (1000 UNITS) TAB PO SCH (09:51)
[2023-12-21] MEDS: ASPIRIN 81 MG ECTAB PO SCH (09:51)
[2023-12-21] MEDS: LOSARTAN POTASSIUM 50 MG TAB PO SCH (09:57)
[2023-12-21] MEDS: METOPROLOL SUCC 25MG EXT REL TAB PO SCH (09:57)
[2023-12-21] MEDS: POTASSIUM CHLORIDE CRTAB 20 MEQ TABCR PO STA (10:04)
[2023-12-21] MEDS: NITROGLYCERIN 0.6 MG/HR PATCH TD SCH (10:11)
--- NOTE | 2023-12-21 12:03 | Hospitalist Progress Note ---
Date of Service December 21, 2023 Assessment & Plan (1) Pneumonia: (2) Acute effusion of both middle ears: (3) Hearing loss: (4) Confusion: (5) HTN (hypertension): Plan: 88-year-old female with history of hypertension, CKD stage III, dyslipidemia, hypothyroidism, asthma, carotid stenosis, GERD, presenting with cough and shortness of breath x 10 days. She is being managed for the following: Bilateral pneumonia Presents with productive cough, weakness. Has completed course of tapering prednisone, has been on Levaquin p.o. for at least 3 days [facility] as prescribed by PCP Admitting CT chest w/ Moderate multifocal airspace opacities, greatest within the right lower lobe. A follow-up chest CT in 3 months to ensure resolution is recommended. BioFire negative, MRSA neg. Check sputum culture - uncollected, f/u 12/19 blood culture C/w cefepime 12/19, c/w probiotic. Xopenex every 6 hours, hypertonic saline twice daily Incentive spirometry, flutter valve, Mucinex, probiotics Pt w/ good po intake, will dc ivf. Bilateral mastoiditis Ethmoid Sinusitis Associated with significant hearing loss As per daughter, patient's hearing has been fine with hearing aids until this illness d/w ENT 12/20, no indication for acute intervention. pt to f/u w/ ENT w/in a week of DC. Diarrhea: no more diarrhea reported, stool biofire is pending. will follow. Confusion, possible toxic metabolic encephalopathy Likely multifactorial from underlying dementia, recent prednisone taper, recent Levaquin use, underlying infection CT head no acute CVA noted Urinalysis no UTI Improving. Continue to monitor closely Delirium prevention strategies Other chronic medical conditions: Continue with/resume home meds as and when able. Hypertensioncontinue home amlodipine, metoprolol, losartan. As needed hydralazine added. CKD stage III: Stable Hypothyroidism: TSH WNL, continue home levothyroxine History of asthma: Not in exacerbation, continue as needed albuterol at home. DVT prophylaxis: Heparin subcu CODE STATUS: DNR/DNI Disposition: PT/OT, CM to assist with DC plan. Admission and Anticipated Discharge Date Admission Date: December 20, 2023 Subjective Patient was seen and examined at bedside. Patient is very hard of hearing and it is very difficult to get ROS from the patient. She nodded "no" to pain. Discussed with RN, no new acute event overnight, patient is eating okay and moving bowels okay, patient noted to have dry cough. Physical Exam Physical Exam: General- awake and alert, not in distress, appears comfortable. very [place]. Head- atraumatic Eyes- PERRL, EOMI, anicteric ENT- oropharynx clear. No ear discharge, no tenderness on palpation of the mastoid area Neck- supple, no JVD, no adenopathy, no thyromegaly; carotids +2/2, no bruits appreciated Lungs- Clear to auscultation . No wheezing. Good air entry bilaterally Heart- normal rate, regular rhythm; no murmur, no gallop, no rub appreciated Abdomen- normal bowel sounds, nondistended, soft, nontender, no masses or hepatosplenomegaly Extremities- no pretibial edema, no calf tenderness; peripheral pulses intact Neuro- CN 2-12 grossly intact Except for severe hearing loss; motor 5/5 bilaterally; sensation 100% on all extremities; no other gross focal neurologic deficits Skin- warm & dry Results & Data Results & Data Vital Signs (Past 12 Hours) Vital Signs Temp Pulse Pulse Resp BP Pulse Ox O2 Del Method 12/21/23 11:05 Room Air 12/21/23 08:30 36.6 C 77 16 147/71 H 93 Room Air 12/21/23 07:34 81 12/21/23 04:15 69 17 12/21/23 02:18 80 22 12/21/23 01:14 69 12/21/23 00:18 79 19 12/21/23 00:00 80 16 96 Room Air (1) Pneumonia Laterality: unspecified laterality Lung location: lower lobe of lung Pneumonia type: due to unspecified organism Qualified Code(s): J18.9 - Pneumonia, unspecified organism
[2023-12-21] MEDS ORDERED: LEVALBUTEROL 1.25 MG/3 ML NEB NEB PRN (14:07)
--- NOTE | 2023-12-21 14:33 | Electrocardiogram Report ---
Test Reason : Blood Pressure : */* mmHG Vent. Rate : 66 BPM Atrial Rate : 66 BPM P-R Int : 164 ms QRS Dur : 84 ms QT Int : 408 ms P-R-T Axes : 53 -25 24 degrees QTcB Int : 427 ms Sinus rhythm with Premature supraventricular complexes Otherwise normal ECG When compared with ECG of 15-Feb-2023 14:55, Premature ventricular complexes are no longer Present Premature supraventricular complexes are now Present Confirmed by Melchor Zhao ([id number]) on 12/21/2023 2:33:12 PM Referred By: REFERRED SELF Confirmed By: Melchor Zhao
[2023-12-21] MEDS ORDERED: Nursing to Pharmacy Communication PRN (19:09)
[2023-12-21 19:34] VITALS: RESP 18
[2023-12-21] MEDS: COUGH DROP (SUGAR FREE) LOZ 24 LOZ/1 BOX BUCCAL PRN (21:27)
[2023-12-22 07:44] VITALS: BP 155/80; PULSE 73; TEMP 97.5; O2SAT 94
[2023-12-22 08:09] LABS: Adenovirus F 40/41 PCR Not Detected (NotDetected); Astrovirus PCR Not Detected (NotDetected); Campylobacter PCR Not Detected (NotDetected); Cryptosporidium PCR Not Detected (NotDetected); Cyclospora cayetanensis PCR Not Detected (NotDetected); Entamoeba histolytica PCR Not Detected (NotDetected); Enteroaggregative E.coli(EAEC) Not Detected (NotDetected); Enteropathogenic E.coli (EPEC) Not Detected (NotDetected); Enterotoxigenic E.coli (ETEC) Not Detected (NotDetected); Giardia lamblia PCR Not Detected (NotDetected); Norovirus GI/GII PCR Not Detected (NotDetected); Plesiomonas shigelloides PCR Not Detected (NotDetected); Rotavirus A PCR Not Detected (NotDetected); Salmonella PCR Not Detected (NotDetected); Sapovirus PCR Not Detected (NotDetected); Shiga-like Toxin E.coli (STEC) Not Detected (NotDetected); Shigella/Enteroinvasive E.coli Not Detected (NotDetected); Vibrio cholerae PCR Not Detected (NotDetected); Vibrio species PCR Not Detected (NotDetected); Yersinia enterocolitica PCR Not Detected (NotDetected)
[2023-12-22 08:43] LABS: Hematocrit (blood only) 48.5 % (37.0-47.0); Hemoglobin 15.7 g/dl (12.0-16.0); Mean Corpuscular Hemoglobin 30.6 pg (25.0-34.0); Mean Corpuscular Hgb Conc 32.4 g/dL (32.0-36.0); Mean Corpuscular Volume 94.5 fL (80.0-100.0); Mean Platelet Volume 9.5 fL (9.4-12.4); Platelet Count 241 K/uL (130-400); RDW Coefficient of Variation 12.8 % (11.5-14.5); RDW Standard Deviation 45.1 fL (36.4-46.3); Red Blood Count 5.13 M/uL (4.20-5.40); White Blood Count 10.53 K/ul (4.8-10.8)
[2023-12-22 08:56] LABS: BUN Creatinine Ratio 10.5 (10-20); Calcium 9.6 mg/dl (8.6-10.3); Creatinine Clr Calc Pharmacy 41.8 ml/min; Phosphorus 2.3 mg/dl (2.5-4.9); Potassium 4.5 mmol/L (3.5-5.1)
--- NOTE | 2023-12-22 12:00 | Discharge Summary ---
Date of Service December 22, 2023 Admission HPI Per Admitting Provider 88-year-old female with history of hypertension, CKD stage III, dyslipidemia, hypothyroidism, asthma, carotid stenosis, GERD, presenting with cough and shortness of breath x 10 days. Patient's history mostly obtained from daughter Gisela at the bedside as patient is very hard of hearing. According to her, patient has dementia at baseline, with some owning noted recently. 10 days ago, patient started to have productive cough, was seen by PCP and was prescribed with prednisone taper, albuterol inhaler as needed and guaifenesin. Symptoms minimally improved, and patient then complained of significant hearing loss, which caused her severe frustration. No fevers or chills, ear pain, ear discharge. Her daughter notes that at 1 point, she noticed thick discharge from patient's eyes and some swelling in the maxillary region. Patient was then brought to the PCP office again last Friday and was given Levaquin p.o. for possible pneumonia. As per daughter, patient's symptoms have not improved since that time. She was noted to be more confused and having diarrhea 2-3 episodes, nonbloody for the past 2 days. At the ER, patient received with elevated blood pressure for, but other vital signs were stable. CT head showed bilateral mastoid effusion, and fluid within bilateral middle ears, moderate sinus mucosal thickening CT chest showing moderate multifocal areas opacities, greatest within the right lower lobe Patient started IV cefepime at the ER. On exam, patient seen sitting up in bed, comfortable, not in distress, on room air, smiling. She states she feels okay overall, has intermittent cough, unable to expectorate sputum. Denies headache, dizziness, ear pain, chest pain, abdominal pain, nausea vomiting. Admission Exam Per Admitting Provider General- oriented x 3, not in distress, speaks in sentences with no effort or accessory muscle use Somewhat weak Head- atraumatic Eyes- PERRL, EOMI, anicteric ENT- oropharynx clear No ear discharge, no tenderness on palpation of the mastoid area Neck- supple, no JVD, no adenopathy, no thyromegaly; carotids +2/2, no bruits appreciated Lungs- Positive mild rhonchi, scattered, bilateral No wheezing Good air entry bilaterally Heart- normal rate, regular rhythm; no murmur, no gallop, no rub appreciated Abdomen- normal bowel sounds, nondistended, soft, nontender, no masses or hepatosplenomegaly Extremities- no pretibial edema, no calf tenderness; peripheral pulses intact Neuro- alert, oriented x 3; CN 2-12 grossly intact Except for severe hearing lo ss; motor 5/5 bilaterally;sensation 100% on all extremities; no other gross focal neurologic deficits Skin- warm & dry Principal Diagnosis Bilateral pneumonia Bilateral mastoiditis Ethmoid sinusitis Diarrhea, resolved Possible toxic metabolic encephalopathy, resolved Discharge Exam General- awake and alert, not in distress, appears comfortable. very [place]. Head- atraumatic Eyes- PERRL, EOMI, anicteric ENT- oropharynx clear. No ear discharge, no tenderness on palpation of the mastoid area Neck- supple, no JVD, no adenopathy, no thyromegaly; carotids +2/2, no bruits appreciated Lungs- Clear to auscultation . No wheezing. Good air entry bilaterally Heart- normal rate, regular rhythm; no murmur, no gallop, no rub appreciated Abdomen- normal bowel sounds, nondistended, soft, nontender, no masses or hepatosplenomegaly Extremities- no pretibial edema, no calf tenderness; peripheral pulses intact Neuro- CN 2-12 grossly intact Except for severe hearing loss; motor 5/5 bilaterally; sensation 100% on all extremities; no other gross focal neurologic deficits Skin- warm & dry Discharge Data Allergies Allergy/AdvReac Type Severity Reaction Status Date / Time lisinopril AdvReac Severe Cough Unverified 12/20/23 14:56 Consultations 12/20/23 14:28 ED Decision to Admit Stat Ordered Studies 12/20/23 11:26 CT angio head w con Stat CT angio neck with con Stat 12/20/23 11:28 CT head/brain wo con Stat 12/20/23 12:46 CT chest diagnostic w con Stat Hospital Course (1) Pneumonia: (2) Acute effusion of both middle ears: (3) Hearing loss: (4) Confusion: (5) HTN (hypertension): 88-year-old female with history of hypertension, CKD stage III, dyslipidemia, hypothyroidism, asthma, carotid stenosis, GERD, presenting with cough and shortness of breath x 10 days. She was managed for the following: Bilateral pneumonia Presents with productive cough, weakness. Has completed course of tapering prednisone, has been on Levaquin p.o. for at least 3 days [employer] as prescribed by PCP Admitting CT chest w/ Moderate multifocal airspace opacities, greatest within the right lower lobe. A follow-up chest CT in 3 months to ensure resolution is recommended. BioFire negative, MRSA neg. f/u 12/19 blood culture -no growth so far C/w cefepime 12/19, c/w probiotic. to Augmentin on dc to complete 7 day course. Pt improving cough, reports no sputum. feels better, has been afebrile and WBC trended to normal. Bilateral mastoiditis Ethmoid Sinusitis Associated with significant hearing loss As per daughter, patient's hearing has been fine with hearing aids until this illness d/w ENT 12/20, no indication for acute intervention. pt to f/u w/ ENT w/in a week of DC. Communicated to pt's dtr Gisela over the phone 12/21. Diarrhea: no more diarrhea reported, stool biofire neg. will follow. Per RN moving bowels ok, no diarrhea. Confusion, possible toxic metabolic encephalopathy Likely multifactorial from underlying dementia, recent prednisone taper, recent Levaquin use, underlying infection CT head no acute CVA noted Urinalysis no UTI resolved. Continue to monitor closely Delirium prevention strategies Other chronic medical conditions: Continue with/resume home meds as and when able. Hypertensioncontinue home amlodipine, metoprolol, losartan. As needed hydralazine added. CKD stage III: Stable Hypothyroidism: TSH WNL, continue home levothyroxine History of asthma: Not in exacerbation, continue as needed albuterol at home. DVT prophylaxis: Heparin subcu CODE STATUS: DNR/DNI Disposition: PT/OT, CM to assist with DC plan. Following instructions were communicated to patient's daughter Gisela over the phone prior to discharge. Patient is being discharged home with home health with following instruction at the point of discharge: Follow-up with your primary care physician within a week time and likely you will need labs CBC/CMP/magnesium/phosphorus. You will be discharged on oral antibiotic to complete the course for bilateral pneumonia, probiotics will be added. For your bilateral mastoiditis, you will need to see ENT physician within a week time upon discharge for further evaluation/management. You will need repeat CT scan of the chest in 3 months time to ensure resolution of your pneumonia. Coordinate with your PCP office to set up the test. Take your medications as prescribed. Please make sure that you are able to get your medications today by calling your pharmacy before you leave the hospital so that your treatment continuity is not broken. Home Health Attestation I certify that this patient is under my care and that I, or a physicians blood and plasma laboratory assistant working with me, had a face to-face encounter that meets the home health [id number] encounter requirements with this patient. The encounter with the patient was in whole, or in part, for the following medical condition, which is the primary reason for home health care (list medical condition): I certify that, based on my findings, the following services are medically necessary home health services: My clinical findings support the need for the above services because: Further, I certify that my clinical findings support that this patient is homebound (i.e. absences from home require considerable and taxing effort and are for medical reasons or shinto services or infrequently or of short duration when for other reasons) because: Certification for Home Health Services: Based on the above findings, I certify that this patient is confined to the home and needs intermittent assisted care, physical therapy and/or speech therapy or continues to need occupational therapy. The patient is under my care, and I have initiated the establishment of the plan of care. This patient will be followed by a physician who will periodically review the plan of care. Total Time Total Time Spent Total Time Spent (In Minutes): 45 Discharge Plan Discharge Items Patient Disposition: Home - Home Health Services Reason For Visit: PNEUMONIA, MASTOIDITIS Discharge Diagnosis: Bilateral pneumonia Bilateral mastoiditis Ethmoid sinusitis Diarrhea, resolved Possible toxic metabolic encephalopathy, resolved Activity: Resume your previous activity Non-emergency contact: Primary Care Provider Call non-emergency contact if: you have any medication questions and your symptoms worsen Follow-up/Referrals: Kenny Slaughter [Primary Care Provider] - 12/24/23 9:45 am Marco Antonio Raza MD [Physician] - 12/30/23 2:30 pm Diet: Heart Healthy Addtl Attending Provider Instructions: Follow-up with your primary care physician within a week time and likely you will need labs CBC/CMP/magnesium/phosphorus. You will be discharged on oral antibiotic to complete the course for bilateral pneumonia, probiotics will be added. For your bilateral mastoiditis, you will need to see ENT physician within a week time upon discharge for further evaluation/management. You will need repeat CT scan of the chest in 3 months time to ensure resolution of your pneumonia. Coordinate with your PCP office to set up the test. Take your medications as prescribed. Please make sure that you are able to get your medications today by calling your pharmacy before you leave the hospital so that your treatment continuity is not broken. Pending Studies at Discharge: Yes Stand-Alone Forms: My [facility], Smoking Cessation Medications and DC Order Prescriptions: New Advanced Probiotic 625 mg (10 billion cell) Capsule 1 cap PO DAILY 7 Days Qty: 7 0RF guaifenesin [Mucinex] 600 mg Tablet Extended Release 12hr 600 mg PO Q12 5 Days Qty: 10 0RF amoxicillin-pot clavulanate 875-125 mg tablet 1 tab PO BID 5 Days Qty: 10 0RF Continued losartan 50 mg tablet 50 mg PO QAM nitroglycerin 0.6 mg/hr patch 24 hour 1 patch transdermal QAM Rx Instructions: Put patch on in the AM Take patch off in the PM atorvastatin 10 mg tablet 10 mg PO QPM cyanocobalamin (vitamin B-12) [Vitamin B-12] 1,000 mcg Tablet 1,000 mcg PO DAILY aspirin 81 mg Tablet,Delayed Release (Dr/Ec) 81 mg PO DAILY acetaminophen [Tylenol Arthritis] 650 mg Tablet Extended Release 650 mg PO BID PRN (Reason: Pain) Rx Instructions: PER PT'S DAUGHTER, "TAKES EVERY MORNING, THEN IF PLANNING ON GOING OUT, WILL TAKE A SECOND TABLET". amlodipine 5 mg tablet 5 mg PO QPM levothyroxine 125 mcg tablet 125 mcg PO DAILYBB cholecalciferol (vitamin D3) [Vitamin D3] 50 mcg (2,000 unit) Capsule 50 mcg PO DAILY acetaminophen [Tylenol Extra Strength] 500 mg Tablet 1,000 mg PO DIRECTED PRN (Reason: PAIN/FEVER) benzonatate 100 mg capsule 100 mg PO QID PRN (Reason: Cough) gabapentin 100 mg capsule 100 mg PO UD Rx Instructions: Every other night metoprolol succinate 25 mg tablet extended release 24 hr 25 mg PO QAM albuterol sulfate 90 mcg/actuation HFA aerosol inhaler 2 puff INHALATION QID PRN (Reason: Coughing) magnesium oxide 250 mg magnesium Tablet 250 mg PO QPM calcium carb, citrate-vit D3 [Citracal-D3 Slow Release] 600 mg-12.5 mcg (500 unit) Tablet Extended Release 1 tab PO DAILY Discontinued levofloxacin 500 mg tablet 500 mg PO DAILY Rx Instructions: Start Date 12/17/23 x10 day supply Discharge Orders: Discharge Order (Routine); Ordered 12/22/23 Ordered By: Katharine Trevino Admission Data Admit Date/Time: 12/20/23 15:01 Attending Provider: Katharine Trevino Admit Provider: Jorge A Anthony Primary Care Provider: Kenny Slaughter Other Providers: Jorge A Anthony
[2023-12-22] MEDS: INFLUENZA VACC TS2024-25(65y+)/PF (IIV3) 0.5mL Syr IM ONE (13:13)
== END 2023-12-22 14:35 | disposition home health service (06) | DRG 193 ==
LOC: ED 10:53 → SUATTDRO 15:01 → EDINP 15:01 → 3E 18:00